=== PATIENT | female | born 1975 | race Two or more races ===

== ENCOUNTER 2017-07-23 18:55 | Emergency (ER) | payer OTHER ==
--- NOTE | 2017-07-23 19:47 | ED Physician Documentation ---
PD HPI URI - Stated complaint Stated Complaint: RT EAR PX - Chief complaint Chief Complaint: Heent - History obtained from History obtained from: Patient - History of Present Illness Timing - onset: How many days ago (several) Timing duration: Days Timing details: Gradual onset, Still present (worsening) Associated symptoms: Ear pain (preauricular area). No: Fever, Chills, Nasal congestion, Rhinorrhea, Sinus pain, Swollen nodes, Dry cough, Dyspnea, NVD Contributing factors: No: Sick contact, Travel, Immunocompromised Similar symptoms before: Has not had sx before Recently seen: Clinic (seen at [facility] and given Amox for possible ear infection. No pain meds nor NSAIDs.) Review of Systems Constitutional: denies: Fever, Chills Eyes: denies: Loss of vision, Decreased vision Ears: reports: Ear pain, Other (no tenderness around the ear, TMJ, nor mastoid.) . denies: Loss of hearing, Tinnitus/ringing Nose: denies: Rhinorrhea / runny nose, Congestion, Sinus pressure / pain Throat: denies: Dental pain / toothache, Oral lesions / sores, Sore throat Respiratory: denies: Cough Skin: denies: Rash, Lesions PD PAST MEDICAL HISTORY - Past Medical History Past Medical History: No - Past Surgical History Past Surgical History: No - Present Medications Home Medications: Ambulatory Orders Medication Instructions Recorded Confirmed Cyclobenzaprine [Flexeril] 10 mg PO TID PRN #20 tablet 03/14/16 HYDROcod/ACETAM 5/325 [[place] 5/325] 1 - 2 ea PO Q6H PRN #15 tablet 03/14/16 Dexamethasone [Decadron] 4 mg PO DAILY #5 tablet 07/23/17 HYDROcod/ACETAM 5/325 [[place] 5/325] 1 tab PO Q6H PRN #15 tablet 07/23/17 carBAMazepine [TEGretol] 100 mg PO BID #20 tablet 07/23/17 - Allergies Allergies/Adverse Reactions: Allergies Allergy/AdvReac Type Severity Reaction Status Date / Time No Known Drug Allergies Allergy Verified 03/14/16 09:44 - Social History Does the pt smoke?: No Smoking Status: Never smoker Does the pt drink ETOH?: No Does the pt have substance abuse?: No - Immunizations Immunizations are current?: Yes PD ED PE NORMAL - Vitals Vital signs reviewed: Yes - General General: Alert and oriented X 3, Well developed/nourished, Other (severe intermittent shooting/sharp pain right preauricular area toward side of cheek. No dental tenderness. TMJ not tender and with good ROM. No skin rash seen. 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 Seems likely c/w TN. ) , d/w patient Departure - Departure Disposition: 01 Home, Self Care Clinical Impression: Trigeminal neuralgia of right side of face Acute ear pain Qualifiers: Laterality: right Qualified Code(s): H92.01 - Otalgia, right ear Condition: Stable Record reviewed to determine appropriate education?: Yes Instructions: ED Neuralgia Trigeminal Follow-Up: SUSHANT GARCIA [Primary Care Provider] - Prescriptions: carBAMazepine [TEGretol] 100 mg PO BID #20 tablet Dexamethasone [Decadron] 4 mg PO DAILY #5 tablet HYDROcod/ACETAM 5/325 [[place] 5/325] 1 tab PO Q6H PRN #15 tablet PRN Reason: Pain Comments: You can continue the amoxicillin but I do not think this is an infection obviously. It sounds more like a nerve irritation called trigeminal neuralgia. Use Decadron daily for 5 more days which is a steroid for inflammation of the nerve. Tylenol or ibuprofen if needed for mild pain and add hydrocodone as needed. Because it sounds like a trigeminal neuralgia, I would start the carbamazepine 100 mg twice daily which is a low dose, and is used to decrease the nerve irritation impulses. Follow-up with your primary care in the next couple of days, call for an appointment. Discharge Date/Time: 07/23/17 20:35
[2017-07-23] MEDS ORDERED: HYDROcod/ACETAM 5/325 MG TABLET PO STA (20:14)
[2017-07-23] MEDS ORDERED: HYDROcod/ACET 5/325 Prepack 6 PO STA (20:14)
[2017-07-23] MEDS ORDERED: DEXAMETHASONE 10 MG/ML VIAL PO STA (20:14)
[2017-07-23 20:34] VITALS: BP 110/67
[2017-07-23] MEDS ORDERED: carBAMazepine 200 MG TABLET PO ONE (20:34)
== END 2017-07-23 20:35 | disposition home or self-care (01) ==
LOC: ED 18:55
DX: G50.0 Trigeminal neuralgia (principal); H92.01 Otalgia, right ear
CPT/HCPCS: 99283; A9270

== ENCOUNTER 2018-03-18 17:45 | Outpatient (CLI) | payer OTHER ==
--- NOTE | 2018-03-19 16:07 | MRI Report ---
Reason: PAIN IN RIGHT SHOULDER Procedure Date: 03/18/2018 Accession Number: [id number] / [id number] Procedure: MRI - Shoulder RT W/O CPT Code: FULL RESULT: EXAM: RIGHT SHOULDER MRI WITHOUT CONTRAST EXAM DATE: 03/18/2018 06:25 PM. CLINICAL HISTORY: Right shoulder pain. COMPARISON: None. TECHNIQUE: Multiplanar, multisequence T1-weighted and fluid-sensitive sequences of the shoulder without contrast. Other: None. FINDINGS: Acromioclavicular Region: The acromion is type I. Mild acromioclavicular osteoarthropathy is evidenced bony hypertrophy, periarticular cyst formation, and capsular hypertrophy. The coracoacromial and coracoclavicular ligaments are intact. A mild amount of fluid is in the subacromial/subdeltoid bursa. Glenohumeral Region: No subluxation. No effusion or loose bodies. The articular cartilage is unremarkable. The glenohumeral ligaments and joint capsule are unremarkable. Bone Marrow: No fracture, marrow edema or bone lesions. Labrum: The labrum is unremarkable on this nonarthrographic study. Musculature/Rotator Cuff: The subscapularis tendon is unremarkable. The supraspinatus tendon has a full-thickness tear of the anterior 9 mm of the tendon. The tear is 14 mm in length. The infraspinatus tendon has a tiny intrasubstance tear of the distal superior myotendinous junction. The teres minor tendon is intact. No edema or fatty atrophy. Biceps Tendon: The long head of the biceps tendon and biceps yessy are intact. Other: The subcutaneous tissues are unremarkable. IMPRESSION: 1. Mild acromioclavicular osteoarthropathy. 2. Mild subacromial/subdeltoid bursitis. 3. Full-thickness tear of the anterior supraspinatus tendon. [facility] MUSCULOSKELETAL RADIOLOGY SECTION
== END 2018-03-18 17:46 | disposition home or self-care (01) ==
LOC: DI 17:45
PROVIDERS: ATTEND General Practice
DX: M25.511 Pain in right shoulder (principal)

== ENCOUNTER 2019-01-03 09:12 | Emergency (ER) | payer OTHER ==
[2019-01-03 09:17] VITALS: BP 119/64
--- NOTE | 2019-01-03 10:48 | XRAY Report ---
Reason: pre-patellar pain Procedure Date: 01/03/2019 Accession Number: [id number] / [id number] Procedure: XR - Knee 4 View LT CPT Code: FULL RESULT: EXAM: LEFT KNEE RADIOGRAPHY EXAM DATE: 01/03/2019 10:35 AM. CLINICAL HISTORY: Pre-patellar pain. 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 COMPARISON: None. TECHNIQUE: 4 views. FINDINGS: Bones: Normal. No fractures or bone lesions. Joints: Normal. No effusion. No subluxations. Soft Tissues: Normal. No soft tissue swelling. IMPRESSION: Normal knee radiography. [facility]
[2019-01-03] MEDS ORDERED: CHERRY SYRUP 10 ML UDC PO ONE (11:01)
[2019-01-03] MEDS ORDERED: DEXAMETHASONE 10 MG/ML VIAL PO STA (11:01)
--- NOTE | 2019-01-03 11:01 | ED Physician Documentation ---
PD HPI LOWER EXT INJURY - Stated complaint Stated Complaint: KNEE PX - Chief complaint Chief Complaint: Ext Problem - History obtained from History obtained from: Patient - History of Present Illness PD HPI LOW EXT INJURY LOCATION: Left, Knee Type of injury: Other (over use at work) Where injury occurred: Work. 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 The pain is worse if she is bearing weight and if she bends her knee. She has fallen and this is related to the pain itself. She denies an injury related to the fall. She has had some similar symptoms in her right shoulder previously and this was eventually improved with a cortisone injection. Review of Systems Constitutional: denies: Fever Eyes: denies: Decreased vision Ears: denies: Ear pain Nose: denies: Congestion Throat: denies: Sore throat Cardiac: denies: Chest pain / pressure Respiratory: denies: Cough GI: denies: Abdominal Pain, Nausea, Vomiting : denies: Dysuria PD PAST MEDICAL HISTORY - Past Surgical History Past Surgical History: No - Present Medications Home Medications: Ambulatory Orders Medication Instructions Recorded Confirmed Cyclobenzaprine [Flexeril] 10 mg PO TID PRN #20 tablet 03/14/16 HYDROcod/ACETAM 5/325 [[place] 5/325] 1 - 2 ea PO Q6H PRN #15 tablet 03/14/16 HYDROcod/ACETAM 5/325 [[place] 5/325] 1 tab PO Q6H PRN #15 tablet 07/23/17 carBAMazepine [TEGretol] 100 mg PO BID #20 tablet 07/23/17 dexAMETHasone [Decadron] 4 mg PO DAILY #5 tablet 07/23/17 Hydrocodone/Acetaminophen 1 - 2 each PO Q6H PRN #14 tablet 01/03/19 [Hydrocodon-Acetaminophen 5-325] - Allergies Allergies/Adverse Reactions: Allergies Allergy/AdvReac Type Severity Reaction Status Date / Time No Known Drug Allergies Allergy Verified 03/14/16 09:44 - Social History Does the pt smoke?: No Smoking Status: Never smoker Does the pt drink ETOH?: No Does the pt have substance abuse?: No - Immunizations Immunizations are current?: Yes - POLST Patient has POLST: No PD ED PE NORMAL - Vitals Vital signs reviewed: Yes (normal ) - General General: Alert and oriented X 3, No acute distress, Well developed/nourished - HEENT HEENT: Atraumatic, PERRL, EOMI - Respiratory Respiratory: No respiratory distress - Derm Derm: Normal color, Warm and dry, No rash - Extremities Extremities: No deformity, No edema, Other (There is some pre-patellar tenderness without swelling or erythema and there is no obvious joint effusion. The distal n/v is intact. 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, No motor deficit, No sensory deficit, Normal speech Eye Opening: Spontaneous Motor: Obeys Commands Verbal: Oriented GCS Score: 15 - Psych Psych: Normal mood, Normal affect Results - Vitals Vitals: Vital Signs - 24 hr 01/03/19 09:14 Temperature 36.5 C Heart Rate 56 L Respiratory 18 Rate Blood Pressure 119/64 O2 Saturation 99 Oxygen O2 Source Room air - Rads (name of study) knee Radiology: Prelim report reviewed (Impression: Normal knee radiography.), EMP read indepedently, See rad report PD MEDICAL DECISION MAKING - ED course Complexity details: reviewed old records, reviewed results, re-evaluated patient, considered differential, d/w patient, d/w family ED course: 43-year-old female with prepatellar knee pain appears to have a bursitis. She is administered DexaMethasone 10 mg orally we will place her on a course short course of pain medication as needed and she will follow-up with orthopedics at [facility] for potential injection. Departure - Departure Disposition: 01 Home, Self Care Clinical Impression: Bursitis of left knee Qualifiers: Knee bursitis location: prepatellar bursitis Qualified Code(s): M70.42 - Prepatellar bursitis, left knee Condition: Stable Instructions: ED Bursitis Follow-Up: Juni Jessica MD [Primary Care Provider] - Prescriptions: Hydrocodone/Acetaminophen [Hydrocodon-Acetaminophen 5-325] 1 - 2 each PO Q6H PRN #14 tablet PRN Reason: pain
== END 2019-01-03 11:36 | disposition home or self-care (01) ==
LOC: ED 09:12
DX: M70.42 Prepatellar bursitis, left knee (principal)
CPT/HCPCS: 73564; 99283; 99284; A9270